=== PATIENT | female | born 1990 | race Hispanic/Latino ===

== ENCOUNTER 2018-12-08 22:13 | Emergency (ER) | payer BC ==
[2018-12-08 22:27] VITALS: BMI 18.3
--- NOTE | 2018-12-08 22:37 | ED PDOC ---
Arrival/HPI - General Chief Complaint: GI Problem Time Seen by Provider: 12/08/18 22:16 Historian: Patient - History of Present Illness Narrative History of Present Illness (Text): 12/08/18 22:36 Mayte Venegas is a 28 year old female, whose past medical history includes palpitations, currently 7 weeks , who presents to the Emergency department complaining of vomiting. Patient states she developed nausea with several episodes of vomiting and diarrhea since yesterday. Patient reports some abdominal cramping and notes she was unable to tolerate PO today. Patient states she has seen an OBGYN, but has not had a sonogram yet. Patient denies any fever, chills, chest pain, shortness of breath, urinary symptoms, back pain, neck pain, headache, dizziness, or any other complaints. OBGYN: Dr. Carbajal Symptom Onset: Gradual Symptom Course: Unchanged Activities at Onset: Light Context: Home Past Medical History - Provider Review Nursing Documentation Reviewed: Yes - Infectious Disease Hx of Infectious Diseases: None - Reproductive Menopause: No - Cardiac Hx Cardiac Disorders: Yes (Heart palpatations) - Psychiatric Hx Depression: No Hx Emotional Abuse: No Hx Physical Abuse: No Hx Substance Use: No - Suicidal Assessment Feels Threatened In Home Enviroment: No Family/Social History - Physician Review Nursing Documentation Reviewed: Yes Family/Social History: Unknown Family HX Hx Alcohol Use: No Hx Substance Use: No Hx Substance Use Treatment: No Allergies/Home Meds Allergies/Adverse Reactions: Allergies No Known Allergies Allergy (Verified 03/23/12 19:45) Home Medications: Home Meds Medication Instructions Recorded Confirmed Cefuroxime [Cefuroxime Axetil] 250 mg PO DAILY 03/23/12 03/23/12 Magnesium Oxide [Mag-Ox 400] 400 mg PO DAILY 03/23/12 03/23/12 Norethindrone AC-Eth Estradiol 1 tab PO DAILY 03/23/12 03/23/12 [Microgestin 20 20 Mcg-1 mg] Verapamil [Verapamil HCl] 40 mg PO BID 03/23/12 03/23/12 Review of Systems - Physician Review All systems were reviewed & negative as marked: Yes - Review of Systems Constitutional: Normal. absent: Fevers Eyes: Normal ENT: Normal Respiratory: Normal. absent: SOB, Cough Cardiovascular: Normal. absent: Chest Pain Gastrointestinal: Abdominal Pain, Diarrhea, Nausea, Vomiting Genitourinary Female: Normal. absent: Dysuria, Frequency, Hematuria, Urine Output Changes Musculoskeletal: Normal. absent: Back Pain, Neck Pain Skin: Normal. absent: Rash Neurological: Normal. absent: Headache, Dizziness Endocrine: Normal Hemo/Lymphatic: Normal Psychiatric: Normal Physical Exam Vital Signs Reviewed: Yes Vital Signs Temp Pulse Resp BP Pulse Ox 12/08/18 22:25 98.4 F 118 H 20 108/75 100 Temperature: Afebrile Blood Pressure: Normal Pulse: Regular Respiratory Rate: Normal Appearance: Positive for: Well-Appearing, Non-Toxic, Comfortable Pain Distress: None Mental Status: Positive for: Alert and Oriented X 3 - Systems Exam Head: Present: Atraumatic, Normocephalic Pupils: Present: PERRL Extroacular Muscles: Present: EOMI Conjunctiva: Present: Normal Mouth: Present: Moist Mucous Membranes Neck: Present: Normal Range of Motion Respiratory/Chest: Present: Clear to Auscultation, Good Air Exchange. No: Respiratory Distress, Accessory Muscle Use Cardiovascular: Present: Regular Rate and Rhythm, Normal S1, S2. No: Murmurs Abdomen: No: Tenderness, Distention, Peritoneal Signs Back: Present: Normal Inspection Upper Extremity: Present: Normal Inspection. No: Cyanosis, Edema Lower Extremity: Present: Normal Inspection. No: Edema Neurological: Present: GCS=15, CN II-XII Intact, Speech Normal Skin: Present: Warm, Dry, Normal Color. No: Rashes Psychiatric: Present: Alert, Oriented x 3, Normal Insight, Normal Concentration Medical Decision Making ED Course and Treatment: 12/08/18 22:36 Impression: 28 year old female complaining of nausea, vomiting, diarrhea, and some abdominal cramping. Plan: -- Transvaginal US -- Labs, lipase -- IV fluids -- Reglan -- Benadryl -- Reassess and disposition Prior Visits: Notes and results from previous visits were reviewed. Progress Notes: 12/09/18 01:12 Transvaginal US: Uterus measures 8.9x4.4x7.5 cm. Anteverted uterus. Normal cervical length measuring 3.5 cm. Single, live intrauterine gestation. Estimated gestational age is 6 weeks and 4 days. heart rate 130 beats per minute. Normal ovaries. Bicornuate uterus with the intrauterine identified in the left uterine horn. Additional echogenicity is identified within gestational sac measuring 7.8x3.7 mm. Findings can be secondary to blood clot or may represent diminutive twin / second pole. No heart rate is identified within this part of above described additional echogenicity within the gestational sac which is identified adjacent to the above-described live intrauterine gestation. Impression: Single, live intrauterine gestation. Adjacent echogenicity within the sac itself. Bicornuate uterus. Electronically signed on Dec 09, 2018 1:12:01 AM EST by: Ruel Jurado M.D., Certified by ABR, MSK, Neuroradiology 12/09/18 02:00 Patient felt much better following treatment.Remained asymptomatic.Full discharge instructions given.Patient was given the full results of her sonogram as well for follow up with her cardiac technologist. - RAD Interpretation Road Mixer Operator: Radiologist - Scribe Statement The provider has reviewed the documentation as recorded by the Scribe Renuka Coughlin Provider Scribe Attestation: All medical record entries made by the Scribe were at my direction and personally dictated by me. I have reviewed the chart and agree that the record accurately reflects my personal performance of the history, physical exam, medical decision making, and the department course for this patient. I have also personally directed, reviewed, and agree with the discharge instructions and disposition. Disposition/Present on Arrival - Present on Arrival Any Indicators Present on Arrival: No History of DVT/PE: No History of Uncontrolled Diabetes: No Urinary Catheter: No History of Decub. Ulcer: No History Surgical Site Infection Following: None - Disposition Have Diagnosis and Disposition been Completed?: Yes Diagnosis: Gastroenteritis Disposition: HOME/ ROUTINE Disposition Time: 02:06 Condition: GOOD Discharge Instructions (ExitCare): Gastroenteritis (ED) Additional Instructions: Drink small amounts of liquids at a time/advance diet slowly as tolerated/meds as prescribed/follow up with your cardiac technologist doctor this week Prescriptions: Doxylamine/Pyridoxine HCl (B6) [Irvin Heck 10-10 mg Tablet] 1 each PO BID PRN #12 tablet.dr VARGAS Reason: Nausea/Vomiting Referrals: Tereza Carbajal MD [Primary Care Provider] - Follow up with primary Forms: [email or web address] (Latvian)
[2018-12-08] MEDS ORDERED: DiphenhydrAMINE 50 mg/ml Inj IVP ONE (22:45)
[2018-12-08] MEDS ORDERED: Sodium Chloride 0.9% 1,000 ML IV STA (22:45)
[2018-12-08 23:35] LABS: HEMOGLOBIN 12.3 g/dL (12.0-16.0); MEAN CELL VOLUME 91.8 fl (80.0-105.0); MEAN CORPUSCULAR HEMOGLOBIN 31.7 pg (25.0-35.0); MEAN CORPUSCULAR HGB CONC 34.6 g/dl (31.0-37.0); MEAN PLATELET VOLUME 9.9 fl (7.0-11.0); RBC 3.88 10^6/uL (3.5-6.1); RED CELL DISTRIBUTION WIDTH 12.8 % (11.5-14.5); WHITE BLOOD COUNT 6.9 10^3/uL (4.5-11.0)
[2018-12-08 23:46] LABS: ALB/GLOB RATIO 1.7 (1.1-1.8); ALBUMIN 4.5 g/dL (3.0-4.8); BLOOD UREA NITROGEN 13 mg/dL (7-21); CALCIUM 9.3 mg/dL (8.4-10.5); GFR NON-AFRICAN AMERICAN > 60; LIPASE 77 U/L (23-300)
[2018-12-09 00:11] LABS: ALT/SGPT 35 U/L (7-56); AST/SGOT 26 U/L (14-36)
[2018-12-09 02:41] VITALS: BP 106/71; PULSE 71; RESP 16; TEMP 97.8; O2SAT 97
--- NOTE | 2018-12-09 12:19 | US ---
Date of service: 12/09/2018 PROCEDURE: OB Pelvic Ultrasound HISTORY: pain LMP: 10/21/2018 suggesting gestation of 7 weeks 0 days. COMPARISON: None available. FINDINGS: UTERUS: Gestational sac: A definitive pole is identified with the additional soft tissue focus of uncertain origin. Pulsatility is not identified in the 2nd structure with cardiac activity clearly identified in the 1st. It is not clear whether this is a single viable intrauterine gestation or a potential twin intrauterine gestation with solitary viable pole seen somewhat more anterior within the gestational sac. Only 1 gestational sac is appreciable as well as solitary decidual reaction. No yolk sac appreciable at this time. Heart rate: 130 bpm. age (Ultrasound estimated): 6 weeks 4 days based on both mean sac diameter of 2.05 cm and mean crown-rump length measurement of 0.73 cm. Ela-gestational hemorrhage: Trace subchorionic hemorrhage is question laterally toward the left, a minimal finding. Date of delivery (Ultrasound estimated) : 07/31/2019. Uterus measures 8.9 x 4.4 x 7.1 cm. Normal in size and appearance. There separate appearing endometrial cavities at the cephalad portion of the uterus in a pattern that is suspicious for possible bicornuate or septate uterus with other etiologies possible as well. Solitary endocervical canal is identified. Clinically correlate further. Note, the gestational sac is identified within the left-sided moiety with the right side unremarkable appearing. CERVIX: Measures 3.6 cm. Long and closed. No cervical abnormality seen. RIGHT OVARY: Measures 3.1 x 1.0 x 3.2 cm. No mass lesion. Normal flow. LEFT OVARY: Measures 3.0 x 1.7 x 3.5 cm. No solid mass. Normal flow. FREE FLUID: None. OTHER FINDINGS: None. IMPRESSION: Probable single viable intrauterine gestation with average ultrasonic age concordant with dates at 6 weeks 4 days. However, there is a small soft tissue focus posterior to the viable pole that may reflect a 2nd nonviable pole within a twin gestation. Trace left lateral subchorionic hemorrhage noted. Sonographic follow-up advised. Variant uterus suggestive of possible uterine didelphys, septate or other uterine variation as discussed above. The gestation is identified at the left-sided moiety in the uterus. Preliminary report provided by Mickey, 12/09/2018, 1:12 a.m..
== END 2018-12-09 02:38 | disposition home or self-care (01) ==
LOC: ED 22:13
DX: O99.611 Diseases of the digestive system complicating pregnancy, first trimester (principal); K52.9 Noninfective gastroenteritis and colitis, unspecified; Z3A.01 Less than 8 weeks gestation of pregnancy
CPT/HCPCS: 76817; 80053; 83690; 85027; 96374; 96375; 99283; J1200; J2765

== ENCOUNTER 2019-01-27 10:42 | Observation (INO) | payer BC ==
[2019-01-27 10:53] VITALS: RESP 18; O2SAT 100
[2019-01-27] MEDS ORDERED: Sodium Chloride 0.9% 1,000 ML IV STA (11:28)
--- NOTE | 2019-01-27 11:42 | ED PDOC ---
Arrival/HPI - General Historian: Patient - History of Present Illness Narrative History of Present Illness (Text): 01/27/19 11:37 28 year old F, 14wk , with pmh of heart palpations with an unknown cause and Cardiac workups (2 yrs ago) present to the emergency department complaining of seeing black floaters, darkened vision, nausea and vomiting since this morning. Patient mentioned that she felt like she was gonna pass out but ultimately did not pass out. Patient denies any fevers, chills, headache, dizziness, chest pain, shortness of breath, dyspnea on exertion, cough, abdominal pain, diarrhea, back pain, neck pain, or any other complaint. Of note, patient states that her prior warehouse receiving clerk Dr. Ware, had suggested that she has physical exam findings of Marfan's syndrome, however she has never had genetic testing to confirm. PMD [facility] Time/Duration: 4-6 hours Symptom Onset: Sudden Symptom Course: Unchanged Activities at Onset: Light Context: Home <Mercy Wolf PA-C - Last Filed: 01/27/19 13:48> <Thien Durant - Last Filed: 01/27/19 14:37> - General Chief Complaint: Weakness/Neurological Deficit Time Seen by Provider: 01/27/19 10:56 Past Medical History - Provider Review Nursing Documentation Reviewed: Yes - Infectious Disease Hx of Infectious Diseases: None - Cardiac Hx Cardiac Disorders: Yes (Heart palpitations) - Genitourinary/Gynecological Hx Genitourinary Disorders: Yes Other/Comment: ruptured voarian cyst. bicornaute uterus - Psychiatric Hx Depression: No Hx Substance Use: No - Anesthesia Hx Anesthesia: No Hx Anesthesia Reactions: No Hx Malignant Hyperthermia: No - Suicidal Assessment Feels Threatened In Home Enviroment: No <Mercy Wolf PA-C - Last Filed: 01/27/19 13:48> Family/Social History - Physician Review Nursing Documentation Reviewed: Yes Family/Social History: No Known Family HX Smoking Status: Never Smoked Hx Alcohol Use: No Hx Substance Use: No Hx Substance Use Treatment: No <Mercy Wolf PA-C - Last Filed: 01/27/19 13:48> Allergies/Home Meds <Mercy Wolf PA-C - Last Filed: 01/27/19 13:48> <BhargavThien - Last Filed: 01/27/19 14:37> Allergies/Adverse Reactions: Allergies No Known Allergies Allergy (Verified 12/27/18 12:05) Review of Systems - Physician Review All systems were reviewed & negative as marked: Yes - Review of Systems Constitutional: absent: Fevers Eyes: Other (Seing black floaters and vision darkening) Respiratory: absent: SOB, Cough, Wheezing Cardiovascular: absent: Chest Pain Gastrointestinal: Nausea, Vomiting. absent: Abdominal Pain, Diarrhea Musculoskeletal: absent: Arthralgias, Back Pain, Neck Pain, Myalgias Neurological: absent: Headache, Dizziness <Mercy Wolf PA-C - Last Filed: 01/27/19 13:48> Physical Exam Vital Signs Reviewed: Yes Vital Signs Temp Pulse Resp BP Pulse Ox 01/27/19 10:42 98.1 F 110 H 18 106/75 100 Temperature: Afebrile Blood Pressure: Normal Pulse: Tachycardic Respiratory Rate: Normal Appearance: Positive for: Well-Appearing, Non-Toxic, Comfortable Mental Status: Positive for: Alert and Oriented X 3 - Systems Exam Head: Present: Atraumatic, Normocephalic Pupils: Present: PERRL Extroacular Muscles: Present: EOMI Mouth: Present: Moist Mucous Membranes Neck: Present: Normal Range of Motion. No: Meningeal Signs, Lymphadenopathy Respiratory/Chest: Present: Clear to Auscultation, Good Air Exchange. No: Respiratory Distress, Accessory Muscle Use Cardiovascular: Present: Normal S1, S2, Tachycardic. No: Murmurs Abdomen: No: Tenderness, Distention, Rebound, Guarding Upper Extremity: Present: Normal Inspection. No: Cyanosis, Edema Lower Extremity: Present: Normal Inspection. No: Edema Neurological: Present: GCS=15, CN II-XII Intact, Speech Normal, Motor Func Grossly Intact, Normal Sensory Function Skin: Present: Warm, Dry, Normal Color. No: Rashes Psychiatric: Present: Alert, Oriented x 3, Normal Insight, Normal Concentration <Mercy Wolf PA-C - Last Filed: 01/27/19 13:48> Vital Signs Temp Pulse Resp BP Pulse Ox 01/27/19 13:35 83 18 109/49 L 100 01/27/19 10:42 98.1 F 110 H 18 106/75 100 <Thien Durant - Last Filed: 01/27/19 14:37> Medical Decision Making ED Course and Treatment: 01/27/19 11:45 Impression: 28 year old F, 14wk , present to the emergency department complaining of seeing black floaters, darkining vision, nausea and vomiting since this morning. Plan: --Labs --EKG --Saline IV --UA -- Reassess and disposition Prior Visits: Notes and results from previous visits were reviewed. Progress Notes: EKG : NSR at 100 bpm, normal axis, no acute ST changes. Labs reviewed and wnl, including (-) trop, (-) ua. Orthostatics reviewed and nl. On reevaluation, patient reports improvement of symptoms, denies any dizziness, CP, palpitations, or nausea, states that she is hungry and wants to eat. On exam, patient remains awake alert and oriented 3 in no acute distress, she is smiling and cheerful in good spirits. She is ambulatory with a steady gait. Diagnostic results d/w the patient, notified of plan for further observation which she agrees to. Case d/w Dr. Perez, hospitalist and Dr. Beverly and agree with plan for obs. Dr. Beverly states that he will see the patient tomorrow. - Medication Orders Current Medication Orders: Sodium Chloride (Sodium Chloride 0.9%) 1,000 mls @ 1,000 mls/hr IV .Q1H STA Stop: 01/27/19 12:27 <Mercy Wolf PA-C - Last Filed: 01/27/19 13:48> - Lab Interpretations Lab Results: Troponin I < 0.01 ng/mL 01/27/19 11:41 Total Bilirubin 0.3 mg/dL (0.2-1.3) 01/27/19 11:41 AST 19 U/L (14-36) 01/27/19 11:41 ALT 20 U/L (7-56) 01/27/19 11:41 Alkaline Phosphatase 43 U/L (38-126) 01/27/19 11:41 Total Protein 6.8 g/dL (5.8-8.3) 01/27/19 11:41 Albumin 3.9 g/dL (3.0-4.8) 01/27/19 11:41 Globulin 2.9 gm/dL 01/27/19 11:41 Albumin/Globulin Ratio 1.3 (1.1-1.8) 01/27/19 11:41 Urine Color Yellow (YELLOW) 01/27/19 11:41 Urine Appearance Clear (CLEAR) 01/27/19 11:41 Urine pH 7.0 (4.7-8.0) 01/27/19 11:41 Ur Specific [place] 1.010 (1.005-1.035) 01/27/19 11:41 Urine Protein Negative mg/dL (<30 mg/dL) 01/27/19 11:41 Urine Glucose (UA) Negative mg/dL (NEGATIVE) 01/27/19 11:41 Urine Ketones Negative mg/dL (NEGATIVE) 01/27/19 11:41 Urine Blood Negative (NEGATIVE) 01/27/19 11:41 Urine Nitrate Negative (NEGATIVE) 01/27/19 11:41 Urine Bilirubin Negative (NEGATIVE) 01/27/19 11:41 Urine Urobilinogen 0.2 E.U./dL (<1 E.U./dL) 01/27/19 11:41 Ur Leukocyte Esterase Trace Ranjith/uL (NEGATIVE) H 01/27/19 11:41 Urine RBC 0 - 2 /hpf (0-2) 01/27/19 11:41 Urine WBC 1 - 3 /hpf (0-6) 01/27/19 11:41 Ur Epithelial Cells 3 - 4 /hpf (0-5) 01/27/19 11:41 Urine Bacteria Few /hpf (NONE) 01/27/19 11:41 - Medication Orders Current Medication Orders: Sodium Chloride (Sodium Chloride 0.9%) 1,000 mls @ 100 mls/hr IV .Q10H AIDE Stop: 01/28/19 00:44 Discontinued Medications Sodium Chloride (Sodium Chloride 0.9%) 1,000 mls @ 1,000 mls/hr IV .Q1H STA Stop: 01/27/19 12:27 Last Admin: 01/27/19 11:50 Dose: 1,000 mls/hr eMAR Start Stop Document 01/27/19 11:50 BB (Rec: 01/27/19 11:50 BB [id number]) Intravenous Solution Start Date 01/27/19 Start Time 11:50 <Thien Durant - Last Filed: 01/27/19 14:37> - PA / SEPTIC TANK SERVICER / Resident Statement SHANA has reviewed & agrees with the documentation as recorded. - Scribe Statement The provider has reviewed the documentation as recorded by the Jeremy Kaur All medical record entries made by the Scribe were at my direction and personally dictated by me. I have reviewed the chart and agree that the record accurately reflects my personal performance of the history, physical exam, medical decision making, and the department course for this patient. I have also personally directed, reviewed, and agree with the discharge instructions and disposition. <eMrcy Wolf PA-C - Last Filed: 01/27/19 13:48> - PA / SEPTIC TANK SERVICER / Resident Statement SHANA has reviewed & agrees with the documentation as recorded. <Thien Durant - Last Filed: 01/27/19 14:37> Disposition/Present on Arrival - Present on Arrival Any Indicators Present on Arrival: No History of DVT/PE: No History of Uncontrolled Diabetes: No Urinary Catheter: No History of Decub. Ulcer: No History Surgical Site Infection Following: None - Disposition Have Diagnosis and Disposition been Completed?: No Disposition Time: 01:30 Patient Plan: Observation <Mercy Wolf PA-C - Last Filed: 01/27/19 13:48> <Thien Durant - Last Filed: 01/27/19 14:37> - Disposition Diagnosis: Near syncope, Disposition: HOSPITALIZED Patient Problems: Current Active Problems Problem Status Onset Near syncope Acute Acute Condition: STABLE
[2019-01-27 11:53] LABS: URINE APPEARANCE CLEAR (CLEAR); URINE BILIRUBIN NEGATIVE (NEGATIVE); URINE BLOOD NEGATIVE (NEGATIVE); URINE COLOR YELLOW (YELLOW); URINE GLUCOSE (UA) NEGATIVE (NEGATIVE); URINE LEUKOCYTE ESTERASE TRACE Leu/uL (NEGATIVE); URINE PROTEIN NEGATIVE mg/dL (<30 mg/dL); URINE UROBILINOGEN 0.2 E.U./dL (<1 E.U./dL)
[2019-01-27 11:54] LABS: BASO # 0.01 K/mm3 (0.0-2.0); BASO % 0.2 % (0.0-3.0); EOS % 0.2 % (1.5-5.0); LYMPH # 1.1 (1.2-3.4); LYMPH % 17.5 % (22.0-35.0); MEAN CELL VOLUME 91.9 fl (80.0-105.0); MEAN CORPUSCULAR HEMOGLOBIN 31.8 pg (25.0-35.0); MEAN CORPUSCULAR HGB CONC 34.6 g/dl (31.0-37.0); MEAN PLATELET VOLUME 9.2 fl (7.0-11.0); MONO # 0.3 (0.1-0.6); MONO % 4.7 % (1.0-6.0); RBC 3.46 10^6/uL (3.5-6.1); RED CELL DISTRIBUTION WIDTH 13.4 % (11.5-14.5)
[2019-01-27 11:57] LABS: URINE BACTERIA FEW /hpf; URINE RBC 0 - 2 /hpf (0-2)
[2019-01-27 12:10] LABS: ALB/GLOB RATIO 1.3 (1.1-1.8); ALBUMIN 3.9 g/dL (3.0-4.8); ALT/SGPT 20 U/L (7-56); AST/SGOT 19 U/L (14-36); BLOOD UREA NITROGEN 9 mg/dL (7-21); GFR NON-AFRICAN AMERICAN > 60
[2019-01-27 12:20] LABS: TROPONIN I < 0.01 ng/mL
--- NOTE | 2019-01-27 14:30 | CP.PCM.HP ---
<Osiel Azevedo - Last Filed: 01/27/19 14:34> History of Present Illness - History of Present Illness History of Present Illness: Osiel Azevedo, PGY1 Hospital H&P This is a 28 year old female 14 weeks with PMH of bicornuate uterus and palpitations presenting to the hospital for palpitations, nausea, vomiting and dizziness. She says she was getting ready for work this morning and notice black spots in her vision as well as diaphoreses and ringing in her ears and proceeded to go the bathroom where she had a near syncope episode but denies LOC and trauma. She states she has had similar episodes in the past but today's symptoms are worse. She was seen in the ED 2 months ago for gastroenteritis. She was previously on metoprolol for palpitations for ten years but stopped during 14 weeks ago. She denies any recent lifestyle change and travel. She denies CP, SOB, headaches, fevers, abnormal vaginal discharge, urinary complaints, numbness and tingling. 12 point ROS noted here, otherwise unremarkable. PMD: Dr. 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 Wylie/Chaz OBGYN: Dr. Carbajal PMH: bicornuate uterus, ?marfans's and palpitations SH: former light smoker, quit 1 year ago. Admits to medical marijuana, quit 3 three months ago, denies alcohol Sx: wisdom teeth removal FH: mom has SVT, brother has Crohn's All: none Meds: pre- vitamin, diclegis Present on Admission - Present on Admission Any Indicators Present on Admission: No Past Patient History - Infectious Disease Hx of Infectious Diseases: None - Past Social History Smoking Status: Former Smoker - CARDIAC Hx Cardiac Disorders: Yes (Heart palpitations) - GENITOURINARY/GYNECOLOGICAL Hx Genitourinary Disorders: Yes Other/Comment: ruptured voarian cyst. bicornaute uterus - PSYCHIATRIC Hx Depression: No Hx Substance Use: No - SURGICAL HISTORY Hx Surgeries: No - ANESTHESIA Hx Anesthesia: No Hx Anesthesia Reactions: No Hx Malignant Hyperthermia: No Meds Allergies/Adverse Reactions: Allergies Allergy/AdvReac Type Severity Reaction Status Date / Time No Known Allergies Allergy Verified 01/27/19 15:55 Physical Exam - Constitutional Appears: Non-toxic, No Acute Distress - Head Exam Head Exam: ATRAUMATIC, NORMAL INSPECTION - Eye Exam Eye Exam: EOMI Pupil Exam: PERRL - Respiratory Exam Respiratory Exam: Clear to Auscultation Bilateral, NORMAL BREATHING PATTERN. absent: Accessory Muscle Use, Wheezes - Cardiovascular Exam Cardiovascular Exam: REGULAR RHYTHM, +S1, +S2. absent: Tachycardia - GI/Abdominal Exam GI & Abdominal Exam: Normal Bowel Sounds, Soft. absent: Firm, Guarding, Tenderness - Extremities Exam Extremities exam: Positive for: normal inspection, pedal pulses present. Negative for: calf tenderness, tenderness - Back Exam Back exam: NORMAL INSPECTION - Neurological Exam Neurological exam: Alert, CN II-XII Intact, Oriented x3 - Skin Skin Exam: Normal Color, Warm Results - Vital Signs Recent Vital Signs: Last Vital Signs Temp 98.1 F 01/27/19 10:42 Pulse 83 01/27/19 13:35 Resp 18 01/27/19 13:35 BP 109/49 L 01/27/19 13:35 Pulse Ox 100 01/27/19 13:35 - Labs Result Diagrams: 01/27/19 11:41 01/27/19 11:41 Labs: Laboratory Results - last 24 hr 01/27/19 01/27/19 01/27/19 11:41 11:41 11:41 WBC 6.0 RBC 3.46 L Hgb 11.0 L Hct 31.8 L MCV 91.9 MCH 31.8 MCHC 34.6 RDW 13.4 Plt Count 137 MPV 9.2 Neut % (Auto) 77.4 H Lymph % (Auto) 17.5 L [place] % (Auto) 4.7 Eos % (Auto) 0.2 L Baso % (Auto) 0.2 Lymph # (Auto) 1.1 L [place] # (Auto) 0.3 Eos # (Auto) 0.0 Baso # (Auto) 0.01 Absolute Neuts (auto) 4.65 Sodium 136 Potassium 4.0 Chloride 103 Carbon Dioxide 26 Anion Gap 12 BUN 9 Creatinine 0.4 L Est GFR ( Amer) > 60 Est GFR (Non-Af Amer) > 60 Random Glucose 84 Calcium 9.0 Magnesium 1.8 Total Bilirubin 0.3 AST 19 ALT 20 Alkaline Phosphatase 43 Lactate Dehydrogenase 324 L Total Creatine Kinase 38 Troponin I < 0.01 Total Protein 6.8 Albumin 3.9 Globulin 2.9 Albumin/Globulin Ratio 1.3 Urine Color Yellow Urine Appearance Clear Urine pH 7.0 Ur Specific Sherman 1.010 Urine Protein Negative Urine Glucose (UA) Negative Urine Ketones Negative Urine Blood Negative Urine Nitrate Negative Urine Bilirubin Negative Urine Urobilinogen 0.2 Ur Leukocyte Esterase Trace H Urine RBC 0 - 2 Urine WBC 1 - 3 Ur Epithelial Cells 3 - 4 Urine Bacteria Few Assessment & Plan - Assessment and Plan (Free Text) Assessment: This is a 28 year old female 14 weeks with PMH of bicornuate uterus and palpitations presenting to the hospital for palpitations, nausea, vomiting and dizziness. Plan: Palpitations -hx of palpitations, stopped metoprolol during 14 weeks ago -Cardio on consult, Dr. Wylie -continue fluids NS @ 100 -transvaginal ultrasound pending -TSH pending -no electrolyte abnormalities appreciated -will observe overnight -afebrile, no WBC -troponin <0.01 -EKG NSR at 100bpm, no ST changes -UA shows trace leuk esterase, no nitrate, 1-3 WBC, few bacteria Patient seen and case discussed with attending, Mohsen Whitney <Mesha Carbajal R - Last Filed: 01/27/19 16:06> Results - Vital Signs Recent Vital Signs: Last Vital Signs Temp 98.1 F 01/27/19 10:42 Pulse 83 01/27/19 13:35 Resp 18 01/27/19 13:35 BP 109/49 L 01/27/19 13:35 Pulse Ox 100 01/27/19 13:35 - Labs Result Diagrams: 01/27/19 11:41 01/27/19 11:41 Labs: Laboratory Results - last 24 hr 01/27/19 01/27/19 01/27/19 11:41 11:41 11:41 WBC 6.0 RBC 3.46 L Hgb 11.0 L Hct 31.8 L MCV 91.9 MCH 31.8 MCHC 34.6 RDW 13.4 Plt Count 137 MPV 9.2 Neut % (Auto) 77.4 H Lymph % (Auto) 17.5 L [place] % (Auto) 4.7 Eos % (Auto) 0.2 L Baso % (Auto) 0.2 Lymph # (Auto) 1.1 L [place] # (Auto) 0.3 Eos # (Auto) 0.0 Baso # (Auto) 0.01 Absolute Neuts (auto) 4.65 Sodium 136 Potassium 4.0 Chloride 103 Carbon Dioxide 26 Anion Gap 12 BUN 9 Creatinine 0.4 L Est GFR ( Amer) > 60 Est GFR (Non-Af Amer) > 60 Random Glucose 84 Calcium 9.0 Magnesium 1.8 Total Bilirubin 0.3 AST 19 ALT 20 Alkaline Phosphatase 43 Lactate Dehydrogenase 324 L Total Creatine Kinase 38 Troponin I < 0.01 Total Protein 6.8 Albumin 3.9 Globulin 2.9 Albumin/Globulin Ratio 1.3 Urine Color Yellow Urine Appearance Clear Urine pH 7.0 Ur Specific [place] 1.010 Urine Protein Negative Urine Glucose (UA) Negative Urine Ketones Negative Urine Blood Negative Urine Nitrate Negative Urine Bilirubin Negative Urine Urobilinogen 0.2 Ur Leukocyte Esterase Trace H Urine RBC 0 - 2 Urine WBC 1 - 3 Ur Epithelial Cells 3 - 4 Urine Bacteria Few Attending/Attestation - Attestation I have personally seen and examined this patient.: Yes I have fully participated in the care of the patient.: Yes I have reviewed all pertinent clinical information: Yes Notes (Text): Patient seen and examined by me with resident at 1:55PM on 01/27/19 in the emergency room. Case including HPI, physical exam, and assessment and plan discussed with resident. Agree with above with following additions/corrections. CC: "I was having nausea, vomiting, dizziness, and palpitations." Patient is a 28-year-old female with past medical history significant for questionable Marfan's syndrome (she has not been worked up for this yet), palpitations, and 14 weeks that presented to the emergency room with dizziness, nausea, vomiting, and palpitations. Patient states that this morning she was getting ready for work and she started to see black spots from her eyes and then she saw darkness. She felt chills but also felt sweaty. She got nauseous and threw up. Her knees gave out and she went to the ground. There was no loss of consciousness or head trauma. She denies any trauma to her abdomen. Patient states that she felt a little shaky afterwards. She also felt some palpitations. 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 She denies any associated shortness of breath. No abdominal pain. No dysuria or vaginal discharge. No fevers or chills. No headaches or recurrent lightheadedness. Patient no longer feels dizzy. No diarrhea or constipation. No chest pain. Palpitations have resolved. 12 point review of systems reviewed by me. See above HPI. All other systems negative. Physical exam: General: Awake and alert sitting up in bed in no acute distress HEENT: Normocephalic, atraumatic. Extraocular muscles intact, pupils equal and reactive, no scleral icterus. Oropharynx is pink moist. Neck is supple. Cardiovascular: Regular rhythm. Normal S1 and S2. No murmurs, rubs, or gallops appreciated Pulmonary: Normal respiratory effort. No rhonchi, rales, or wheezing appreciated Gastrointestinal: Soft, nondistended. Nontender. Positive bowel sounds all 4 quadrants. No guarding. Musculoskeletal: Moves all extremities. No calf tenderness. No edema appreciated Central nervous system: AAO x 3, CN 2-12 grossly intact. Dermatologic: Skin warm and dry. Assessment and plan: Patient is a 28-year-old female with past medical history significant for questionable Marfan's syndrome (she has not been worked up for this yet), palpitations, and 14 weeks that presented to the emergency room with dizziness, nausea, vomiting, and palpitations. 1. Palpitations. Resolved for now. Patient was previously on metoprolol which was stopped in November once patient became . Follow-up TSH. Cardiology consulted, follow-up recommendations. Placed on IV fluids. 2. Nausea, vomiting, dizziness. Likely secondary to . Place patient on IV fluids. Monitor overnight on telemetry. 3. . Will check transvaginal ultrasound secondary to fall. Patient advised to follow-up with MARINE SERVICE OPERATOR on discharge. Case was discussed in detail with the patient regarding current diagnosis and treatment plan. All questions answered.
[2019-01-27] MEDS ORDERED: Sodium Chloride 0.9% 1,000 ML IV SCH (14:45)
--- NOTE | 2019-01-27 18:21 | US ---
Date of service: 01/27/2019 PROCEDURE: age ultrasound HISTORY: near syncope, n/v COMPARISON: 12/09/2018 TECHNIQUE: Standard protocol for this study/examination. FINDINGS: Variable presentation. Posterior placenta. No evidence of abruption or previa Gestational age derived from LMP 14 weeks. MK 07/28/2019. Gestational age derived from the following biometric parameters 14 weeks. MK 07/28/2019 Biparietal diameter 1.82 cm Head circumference 10.01 cm Abdominal circumference 7.89 cm Femur length 1.33 cm Estimated weight 90.7 g Calculated cardiac rate 148 beats per min. Closed cervix measuring 3.09 cm IMPRESSION: 14 weeks live intrauterine gestation. Gestational concordance documented. Adequate interval progression compared to the prior study.
[2019-01-27 18:54] VITALS: BMI 19.9
[2019-01-27] MEDS ORDERED: Pneumococcal 23-Valent Vaccine IM ONE (18:54)
[2019-01-27] MEDS ORDERED: Influenza Vaccine 60 mcg/0.5 mL SYR (4YR UP) IM ONE (18:54)
[2019-01-27] MEDS ORDERED: PYRIDOXINE HCL PO PRN (19:10)
[2019-01-27] MEDS ORDERED: DOXYLAMINE PO PRN (19:10)
[2019-01-27] MEDS ORDERED: [UNRECOGNIZED DRUG - OTHER] PO PRN (19:10)
[2019-01-27] MEDS: [UNRECOGNIZED DRUG - OTHER] PO SCH (22:19)
--- NOTE | 2019-01-27 22:44 | CARD ---
APPROVED REPORT Date of service: 01/27/2019 EKG Measurement Heart [id number] <Conclusion> Normal sinus rhythm Normal ECG
[2019-01-28 07:18] LABS: EOS % 0.9 % (1.5-5.0); HEMOGLOBIN 9.8 g/dL (12.0-16.0); LYMPH # 1.6 (1.2-3.4); LYMPH % 36.4 % (22.0-35.0); MEAN CELL VOLUME 92.9 fl (80.0-105.0); MEAN CORPUSCULAR HEMOGLOBIN 31.8 pg (25.0-35.0); MEAN CORPUSCULAR HGB CONC 34.3 g/dl (31.0-37.0); MEAN PLATELET VOLUME 9.3 fl (7.0-11.0); MONO # 0.4 (0.1-0.6); MONO % 8.7 % (1.0-6.0); RBC 3.08 10^6/uL (3.5-6.1); RED CELL DISTRIBUTION WIDTH 13.6 % (11.5-14.5); WHITE BLOOD COUNT 4.4 10^3/uL (4.5-11.0)
[2019-01-28 07:33] LABS: ALB/GLOB RATIO 1.2 (1.1-1.8); ALBUMIN 3.1 g/dL (3.0-4.8); ALT/SGPT 9 U/L (7-56); AST/SGOT 18 U/L (14-36); BLOOD UREA NITROGEN 7 mg/dL (7-21); CALCIUM 8.5 mg/dL (8.4-10.5); GFR NON-AFRICAN AMERICAN > 60
[2019-01-28 08:31] VITALS: BP 99/62; TEMP 97.7
--- NOTE | 2019-01-28 09:50 | CON ---
DATE OF CONSULTATION: 01/28/2019 REASON FOR CONSULTATION: Tachycardia, near syncope. HISTORY: This is a 28-year-old woman with a previous history of dysrhythmias, who had been maintained on low-dose beta-shandra therapy with relatively good effect. She recently became and was advised to withhold the beta-shandra. Subsequently, she has had multiple episodes of tachycardias, most of which occur for just a few seconds. Yesterday she had a prolonged episode and felt as though she may lose consciousness with visual scotoma and nausea. She presented to the emergency room. However, upon arrival, her symptoms had improved to some degree. She was noted be in sinus tachycardia on arrival. PAST MEDICAL HISTORY: Her past history is notable only for the problems mentioned above. She is currently 14 weeks with no known complications thus far. MEDICATIONS: Medications at the present time, vitamins only. ALLERGIES: NONE. SOCIAL HISTORY: She does not smoke or drink. She is , lives with her . There is the first . 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 FAMILY HISTORY: Both parents are alive and in good health. There is no family history of premature heart disease. REVIEW OF SYSTEMS: Ten-point review of systems is otherwise unremarkable. PHYSICAL EXAMINATION: GENERAL: She is a thin, young woman, who appears comfortable at the present time. VITAL SIGNS: Her blood pressure is 100/60 with a pulse of 66 and sinus, respirations are 14. She is afebrile. HEENT: Normocephalic, atraumatic. NECK: Supple. No JVD noted. CHEST: Clear to auscultation and percussion. HEART: PMI in normal position. No pathological murmurs or gallops noted. ABDOMEN: Soft and nontender. Bowel sounds are present. 14-week uterus is noted. EXTREMITIES: No clubbing, cyanosis, or edema. SKIN: Warm and dry. PSYCHIATRIC: Normal mood and affect. NEUROLOGIC: Alert and oriented x3. General appearance, she does have mild scoliosis pectus excavatum and long digits and arms. DIAGNOSTIC DATA: Potassium is 3.8, BUN and creatinine are 7 and 0.4. Troponin was drawn, which was negative. White count is 4.4, hemoglobin and hematocrit are 9.28 and 28.6 with a platelet count of 128,000. TSH 3.36. Her electrocardiogram reveals sinus rhythm and shows no other abnormalities. IMPRESSION: 1. Near syncope with symptoms of palpitations suggestive of recurrent supraventricular dysrhythmia. 2. Marfanoid appearance. 3. Healthy 14-week . RECOMMENDATIONS: Treatment options were discussed with her at the present time. It would appear reasonable to resume low-dose beta-shandra therapy, as this controlled her symptoms reasonably well for many years. The relative safety of low-dose beta-shandra therapy in was discussed at length with her and her . The alternative of continued watchful waiting in resumption of drug therapy should further recurrences be seen was also discussed. Alternative drug therapy such as verapamil was also presented, but both beta-blockers and calcium shandra therapy have relatively low teratogenicity potential. An echocardiogram will be arranged as an outpatient. From a cardiac standpoint, she is stable for discharge home at this time. Eventual genetic testing for Marfan syndrome given her general appearance would be reasonable. Thank you for this consultation and an outpatient follow up will be arranged. Osvaldo Beverly MD
[2019-01-28] MEDS: [UNRECOGNIZED DRUG - OTHER] PO SCH (09:51)
[2019-01-28 12:30] VITALS: PULSE 79
--- NOTE | 2019-01-28 14:01 | CP.PCM.DIS ---
<Osiel Azevedo - Last Filed: 01/28/19 13:53> Provider - Provider Date of Admission: 01/27/19 13:55 Attending physician: Erik Snow MD Primary care physician: Oniel Belle MD Consults: 01/27/19 13:57 Physician Consult Routine Comment: near syncope Consulting Provider: Osvaldo Beverly Consulting Physician: Osvaldo Beverly Reason for Consult: near syncope Additional Comments: ER PA spoke to MD Time Spent in preparation of Discharge (in minutes): 35 Hospital Course - Lab Results Lab Results: Micro Results 01/27/19 11:41 Urine,Clean Catch Urine Culture - Final No Growth (<1,000 CFU/ML) Most Recent Lab Values WBC 4.4 10^3/uL (4.5-11.0) L D 01/28/19 06:00 RBC 3.08 10^6/uL (3.5-6.1) L 01/28/19 06:00 Hgb 9.8 g/dL (12.0-16.0) L 01/28/19 06:00 Hct 28.6 % (36.0-48.0) L 01/28/19 06:00 MCV 92.9 fl (80.0-105.0) 01/28/19 06:00 MCH 31.8 pg (25.0-35.0) 01/28/19 06:00 MCHC 34.3 g/dl (31.0-37.0) 01/28/19 06:00 RDW 13.6 % (11.5-14.5) 01/28/19 06:00 Plt Count 128 10^3/uL (120.0-450.0) 01/28/19 06:00 MPV 9.3 fl (7.0-11.0) 01/28/19 06:00 Neut % (Auto) 54.0 % (50.0-68.0) 01/28/19 06:00 Lymph % (Auto) 36.4 % (22.0-35.0) H 01/28/19 06:00 [place] % (Auto) 8.7 % (1.0-6.0) H 01/28/19 06:00 Eos % (Auto) 0.9 % (1.5-5.0) L 01/28/19 06:00 Baso % (Auto) 0.0 % (0.0-3.0) 01/28/19 06:00 Lymph # (Auto) 1.6 (1.2-3.4) 01/28/19 06:00 [place] # (Auto) 0.4 (0.1-0.6) 01/28/19 06:00 Eos # (Auto) 0.0 (0.0-0.7) 01/28/19 06:00 Baso # (Auto) 0.00 K/mm3 (0.0-2.0) 01/28/19 06:00 Absolute Neuts (auto) 2.37 (1.4-6.5) 01/28/19 06:00 Sodium 138 mmol/L (132-148) 01/28/19 06:00 Potassium 3.8 mmol/L (3.6-5.0) 01/28/19 06:00 Chloride 106 mmol/L (98-107) 01/28/19 06:00 Carbon Dioxide 25 mmol/L (21-33) 01/28/19 06:00 Anion Gap 10 (10-20) 01/28/19 06:00 BUN 7 mg/dL (7-21) 01/28/19 06:00 Creatinine 0.4 mg/dl (0.7-1.2) L 01/28/19 06:00 Est GFR ( Amer) > 60 01/28/19 06:00 Est GFR (Non-Af Amer) > 60 01/28/19 06:00 POC Glucose (mg/dL) 94 mg/dL (65-110) 01/27/19 11:58 Random Glucose 67 mg/dL (70-110) L 01/28/19 06:00 Calcium 8.5 mg/dL (8.4-10.5) 01/28/19 06:00 Phosphorus 3.9 mg/dL (2.5-4.5) 01/28/19 06:00 Magnesium 1.7 mg/dL (1.7-2.2) 01/28/19 06:00 Total Bilirubin 0.2 mg/dL (0.2-1.3) 01/28/19 06:00 AST 18 U/L (14-36) 01/28/19 06:00 ALT 9 U/L (7-56) 01/28/19 06:00 Alkaline Phosphatase 39 U/L (38-126) 01/28/19 06:00 Lactate Dehydrogenase 324 U/L (333-699) L 01/27/19 11:41 Total Creatine Kinase 38 U/L (35-230) 01/27/19 11:41 Troponin I < 0.01 ng/mL 01/27/19 11:41 Total Protein 5.8 g/dL (5.8-8.3) 01/28/19 06:00 Albumin 3.1 g/dL (3.0-4.8) 01/28/19 06:00 Globulin 2.7 gm/dL 01/28/19 06:00 Albumin/Globulin Ratio 1.2 (1.1-1.8) 01/28/19 06:00 TSH 3rd Generation 3.36 mIU/mL (0.46-4.68) 01/28/19 06:00 Urine Color Yellow (YELLOW) 01/27/19 11:41 Urine Appearance Clear (CLEAR) 01/27/19 11:41 Urine pH 7.0 (4.7-8.0) 01/27/19 11:41 Ur Specific [place] 1.010 (1.005-1.035) 01/27/19 11:41 Urine Protein Negative mg/dL (<30 mg/dL) 01/27/19 11:41 Urine Glucose (UA) Negative mg/dL (NEGATIVE) 01/27/19 11:41 Urine Ketones Negative mg/dL (NEGATIVE) 01/27/19 11:41 Urine Blood Negative (NEGATIVE) 01/27/19 11:41 Urine Nitrate Negative (NEGATIVE) 01/27/19 11:41 Urine Bilirubin Negative (NEGATIVE) 01/27/19 11:41 Urine Urobilinogen 0.2 E.U./dL (<1 E.U./dL) 01/27/19 11:41 Ur Leukocyte Esterase Trace Ranjith/uL (NEGATIVE) H 01/27/19 11:41 Urine RBC 0 - 2 /hpf (0-2) 01/27/19 11:41 Urine WBC 1 - 3 /hpf (0-6) 01/27/19 11:41 Ur Epithelial Cells 3 - 4 /hpf (0-5) 01/27/19 11:41 Urine Bacteria Few /hpf (NONE) 01/27/19 11:41 Physical Exam - Constitutional Appears: Non-toxic, No Acute Distress - Head Exam Head Exam: ATRAUMATIC, NORMAL INSPECTION - Eye Exam Eye Exam: EOMI Pupil Exam: PERRL - Respiratory Exam Respiratory Exam: Clear to Auscultation Bilateral, NORMAL BREATHING PATTERN. absent: Accessory Muscle Use, Wheezes - Cardiovascular Exam Cardiovascular Exam: REGULAR RHYTHM, +S1, +S2. absent: Tachycardia - GI/Abdominal Exam GI & Abdominal Exam: Normal Bowel Sounds, Soft. absent: Firm, Guarding, Tenderness - Extremities Exam Extremities exam: Positive for: normal inspection, pedal pulses present. Negative for: calf tenderness, tenderness - Back Exam Back exam: NORMAL INSPECTION - Neurological Exam Neurological exam: Alert, CN II-XII Intact, Oriented x3 - Skin Skin Exam: Normal Color, Warm - Hospital Course Hospital Course: Upon admission, 28 year old female 14 weeks with PMH of bicornuate uterus and palpitations presenting to the hospital for palpitations, nausea, vomiting and dizziness. She says she was getting ready for work this morning and notice black spots in her vision as well as diaphoreses and ringing in her ears and proceeded to go the bathroom where she had a near syncope episode but denies LOC and trauma. She states she has had similar episodes in the past but today's symptoms are worse. She was seen in the ED 2 months ago for gastroenteritis. She was previously on metoprolol for palpitations for ten years but stopped during 14 weeks ago. She denies any recent lifestyle change and travel. During hospital course, patient was afebrile no WBC noted. UA positive for trace leuk esterase and few WBC and bacteria. Urine culture shows no growth. Troponin and TSH were WNL and EKG was unremarkable. heart rate noted to be 165 today. Cardiology was consulted and recommended resuming metoprolol ER 25mg daily. Patient understood that medication is category C and spoke with Dr. Wylie about the medication concerning its potential side effects and will follow up with her packaging operator and OBGYN as outpatient. TVUS showed 14 weeks live intrauterine gestation. All of patient's questions were answered to her satisfaction and she agreed with discharge today. Discharge Plan - Follow Up Plan Condition: STABLE Disposition: HOME/ ROUTINE Instructions: Palpitations (DC), Near Fainting (DC) Additional Instructions: Please follow up with your primary care doctor, Dr. Belle within 3-5 days of discharge. Please follow up with your OBGYN, Dr. Adriel Carbajal within 3-5 days of discharge. Please follow up with your packaging operator, Dr Wylie within 3-5 days of discharge. Your packaging operator, Dr. Wylie has provided you with a script for metoprolol 25mg daily. Please continue your home medications, as per our discussion, you do not need any refills at this time. Please return to the ED for any new or worsening symptoms. Referrals: Osvaldo Beverly MD [Staff Provider] - Oniel Belle MD [Primary Care Provider] - Tereza Carbajal MD [Medical Doctor] - <Mesha Carbajal - Last Filed: 01/28/19 16:01> Provider - Provider Date of Admission: 01/27/19 13:55 Attending physician: Erik Snow MD Primary care physician: Oniel Belle MD Consults: 01/27/19 13:57 Physician Consult Routine Comment: near syncope Consulting Provider: Osvaldo Beverly Consulting Physician: Osvaldo Beverly Reason for Consult: near syncope Additional Comments: ER PA spoke to MD Hospital Course - Lab Results Lab Results: Micro Results 01/27/19 11:41 Urine,Clean Catch Urine Culture - Final No Growth (<1,000 CFU/ML) Most Recent Lab Values WBC 4.4 10^3/uL (4.5-11.0) L D 01/28/19 06:00 RBC 3.08 10^6/uL (3.5-6.1) L 01/28/19 06:00 Hgb 9.8 g/dL (12.0-16.0) L 01/28/19 06:00 Hct 28.6 % (36.0-48.0) L 01/28/19 06:00 MCV 92.9 fl (80.0-105.0) 01/28/19 06:00 MCH 31.8 pg (25.0-35.0) 01/28/19 06:00 MCHC 34.3 g/dl (31.0-37.0) 01/28/19 06:00 RDW 13.6 % (11.5-14.5) 01/28/19 06:00 Plt Count 128 10^3/uL (120.0-450.0) 01/28/19 06:00 MPV 9.3 fl (7.0-11.0) 01/28/19 06:00 Neut % (Auto) 54.0 % (50.0-68.0) 01/28/19 06:00 Lymph % (Auto) 36.4 % (22.0-35.0) H 01/28/19 06:00 [place] % (Auto) 8.7 % (1.0-6.0) H 01/28/19 06:00 Eos % (Auto) 0.9 % (1.5-5.0) L 01/28/19 06:00 Baso % (Auto) 0.0 % (0.0-3.0) 01/28/19 06:00 Lymph # (Auto) 1.6 (1.2-3.4) 01/28/19 06:00 [place] # (Auto) 0.4 (0.1-0.6) 01/28/19 06:00 Eos # (Auto) 0.0 (0.0-0.7) 01/28/19 06:00 Baso # (Auto) 0.00 K/mm3 (0.0-2.0) 01/28/19 06:00 Absolute Neuts (auto) 2.37 (1.4-6.5) 01/28/19 06:00 Sodium 138 mmol/L (132-148) 01/28/19 06:00 Potassium 3.8 mmol/L (3.6-5.0) 01/28/19 06:00 Chloride 106 mmol/L (98-107) 01/28/19 06:00 Carbon Dioxide 25 mmol/L (21-33) 01/28/19 06:00 Anion Gap 10 (10-20) 01/28/19 06:00 BUN 7 mg/dL (7-21) 01/28/19 06:00 Creatinine 0.4 mg/dl (0.7-1.2) L 01/28/19 06:00 Est GFR ( Amer) > 60 01/28/19 06:00 Est GFR (Non-Af Amer) > 60 01/28/19 06:00 POC Glucose (mg/dL) 94 mg/dL (65-110) 01/27/19 11:58 Random Glucose 67 mg/dL (70-110) L 01/28/19 06:00 Calcium 8.5 mg/dL (8.4-10.5) 01/28/19 06:00 Phosphorus 3.9 mg/dL (2.5-4.5) 01/28/19 06:00 Magnesium 1.7 mg/dL (1.7-2.2) 01/28/19 06:00 Total Bilirubin 0.2 mg/dL (0.2-1.3) 01/28/19 06:00 AST 18 U/L (14-36) 01/28/19 06:00 ALT 9 U/L (7-56) 01/28/19 06:00 Alkaline Phosphatase 39 U/L (38-126) 01/28/19 06:00 Lactate Dehydrogenase 324 U/L (333-699) L 01/27/19 11:41 Total Creatine Kinase 38 U/L (35-230) 01/27/19 11:41 Troponin I < 0.01 ng/mL 01/27/19 11:41 Total Protein 5.8 g/dL (5.8-8.3) 01/28/19 06:00 Albumin 3.1 g/dL (3.0-4.8) 01/28/19 06:00 Globulin 2.7 gm/dL 01/28/19 06:00 Albumin/Globulin Ratio 1.2 (1.1-1.8) 01/28/19 06:00 TSH 3rd Generation 3.36 mIU/mL (0.46-4.68) 01/28/19 06:00 Urine Color Yellow (YELLOW) 01/27/19 11:41 Urine Appearance Clear (CLEAR) 01/27/19 11:41 Urine pH 7.0 (4.7-8.0) 01/27/19 11:41 Ur Specific [place] 1.010 (1.005-1.035) 01/27/19 11:41 Urine Protein Negative mg/dL (<30 mg/dL) 01/27/19 11:41 Urine Glucose (UA) Negative mg/dL (NEGATIVE) 01/27/19 11:41 Urine Ketones Negative mg/dL (NEGATIVE) 01/27/19 11:41 Urine Blood Negative (NEGATIVE) 01/27/19 11:41 Urine Nitrate Negative (NEGATIVE) 01/27/19 11:41 Urine Bilirubin Negative (NEGATIVE) 01/27/19 11:41 Urine Urobilinogen 0.2 E.U./dL (<1 E.U./dL) 01/27/19 11:41 Ur Leukocyte Esterase Trace Ranjith/uL (NEGATIVE) H 01/27/19 11:41 Urine RBC 0 - 2 /hpf (0-2) 01/27/19 11:41 Urine WBC 1 - 3 /hpf (0-6) 01/27/19 11:41 Ur Epithelial Cells 3 - 4 /hpf (0-5) 01/27/19 11:41 Urine Bacteria Few /hpf (NONE) 01/27/19 11:41 Attending/Attestation - Attestation I have personally seen and examined this patient.: Yes I have fully participated in the care of the patient.: Yes I have reviewed all pertinent clinical information, including history, physical exam and plan: Yes Notes (Text): Please note this DC summary is for 01/28/19 Patient seen and examined by me with resident at approximately 9:50AM and prior to discharge on 01/28/19. Case including discharge plan discussed with resident. Agree with above with following additions/corrections. Patient is a 28-year-old female with past medical history significant for questionable Marfan's syndrome (she has not been worked up for this yet), palpitations, and 14 weeks that presented to the emergency room with dizziness, nausea, vomiting, and palpitations. Please see H&P for full details. Patient was admitted with palpitations, nausea, vomiting, dizziness, and . Patient was treated with IV fluids. She was seen by packaging operator. Patient was restarted on Toprol-XL [address] Wylie. TSH was within normal limits. Palpitations resolved. Patient is aware and understands that Toprol-XL is a category C drug in . She states that she spoke with her WASH MILL OPERATOR who agreed with patient taking the medication. Patient also had some nausea vomiting and dizziness which also resolved upon discharge. ultrasound was done which per radiologist showed 14 weeks life intrauterine gestation, gestational concordance documented, adequate interval progression compared to prior study. Patient was afebrile. Tachycardia resolved. Patient had no leukocytosis. Patient had some anemia likely secondary to . Patient was feeling much better and was cleared for discharge by packaging operator. She was discharged home. On day of discharge, patient was feeling much better. All symptoms resolved. Patient denied any headaches or dizziness. No chest palpitations. No chest pain or shortness of breath. No fevers or chills. No dysuria. No nausea, vomiting, or abdominal pain. No diarrhea or constipation. Physical exam: General: Awake and alert sitting up in bed in no acute distress HEENT: Normocephalic, atraumatic. Extraocular muscles intact, pupils equal and reactive, no scleral icterus. Oropharynx is pink moist. Neck is supple. Cardiovascular: Regular rhythm. Normal S1 and S2. No murmurs, rubs, or gallops appreciated Pulmonary: Normal respiratory effort. No rhonchi, rales, or wheezing appreciated Gastrointestinal: Soft, nondistended. Nontender. Positive bowel sounds all 4 quadrants. No guarding. Musculoskeletal: Moves all extremities. No calf tenderness. No edema appreciated Central nervous system: AAO x 3, CN 2-12 grossly intact. Dermatologic: Skin warm and dry. Please see chart for full details. Follow up instructions: Patient to follow-up with primary care doctor within 3-5 days. Patient to follow up with her WASH MILL OPERATOR within 3-5 days. Patient to follow up with packaging operator within 3-5 days. All instructions explained to the patient in detail. Patient both understands and agrees to all instructions. Written instructions also given. Time spent in discharging the patient including chart review, medication reconciliation, discussion with the patient, medical office supervisor, consultants, and nursing staff was approximately 35 minutes.
== END 2019-01-28 13:04 | disposition home or self-care (01) ==
LOC: ED 10:42 → ERH 13:55 → 3RNO 15:28
PROVIDERS: ADMIT Internal Medicine; ATTEND Internal Medicine
DX: O26.892 Other specified pregnancy related conditions, second trimester (principal); O99.012 Anemia complicating pregnancy, second trimester; O21.9 Vomiting of pregnancy, unspecified; Z3A.14 14 weeks gestation of pregnancy; Z87.891 Personal history of nicotine dependence; R00.2 Palpitations; H43.399 Other vitreous opacities, unspecified eye
CPT/HCPCS: 36415; 76815; 80053; 81001; 82550; 82948; 83615; 83735; 84100; 84443; 84484; 85025; 87086; 93005; 99285; G0378; J7030